=== PATIENT | female | born 1985 | race Caucasian/White ===

== ENCOUNTER 2019-06-09 00:57 | Inpatient (IN) | payer BC ==
[2019-06-09] MEDS ORDERED: Sodium Chloride 0.9% 10 ML Syringe FLUSH PRN (08:02)
[2019-06-09] MEDS ORDERED: Nalbuphine 10 MG/1 ML Vial IVPUSH PRN (08:02)
[2019-06-09] MEDS ORDERED: Oxytocin/Lactated Ringers 10 UNIT/1,000 ML BAG IV SCH ×2 (08:15)
[2019-06-09] MEDS: Lactated Ringers 1,000 ML IV SCH ×5 (08:27→23:31)
--- NOTE | 2019-06-09 10:14 | PCM.PREANE ---
Preanesthetic Assessment - Procedure Proposed Procedure: EVETTE - Anesthesia/Transfusion/Family Hx Anesthesia History: Prior Anesthesia Without Reaction Transfusion History: No Prior Transfusion(s) Intubation History: Unknown - Review of Systems General: No Symptoms Pulmonary: No Symptoms Cardiovascular: No Symptoms Gastrointestinal: Other (GERD tx with tums during ) Neurological: No Symptoms Other: Reports: None, Easy Bleeding (low platelets ) - Physical Assessment NPO Status Date: 06/02/19 NPO Status Time: 09:40 Vital Signs: Last Vital Signs Temp 36.1 C 06/09/19 08:03 Pulse 76 06/09/19 08:03 Resp 12 06/09/19 08:03 BP 117/73 06/09/19 08:03 Pulse Ox 100 06/09/19 08:03 Height: 1.65 m Weight: 84.232 kg ASA Class: 2 Mental Status: Alert & Oriented x3 Airway Class: Mallampati = 1 Dentition: Reports: Normal Dentition Thyro-Mental Finger Breadths: 3 Mouth Opening Finger Breadths: 5 ROM/Head Extension: Full Lungs: Clear to Auscultation, Normal Respiratory Effort Cardiovascular: Regular Rate, Regular Rhythm - Lab Values: Laboratory Last Values WBC 8.99 K/mm3 (3.98-10.04) 06/09/19 08:27 RBC 4.55 M/mm3 (3.98-5.22) 06/09/19 08:27 Hgb 13.2 gm/L (11.2-15.7) 06/09/19 08:27 Hct 39.1 % (34.1-44.9) 06/09/19 08:27 MCV 85.9 fl (79.4-94.8) 06/09/19 08:27 MCH 29.0 pg (25.6-32.2) 06/09/19 08:27 MCHC 33.8 g/dl (32.2-35.5) 06/09/19 08:27 RDW Std Deviation 41.0 fL (36.4-46.3) 06/09/19 08:27 Plt Count 107 K/mm3 (182-369) L 06/09/19 08:27 MPV 11.7 fl (9.4-12.3) 06/09/19 08:27 Neut % (Auto) 73.1 % (34.0-71.1) H 06/09/19 08:27 Lymph % (Auto) 18.0 % (19.3-51.7) L 06/09/19 08:27 [place] % (Auto) 7.6 % (4.7-12.5) 06/09/19 08:27 Eos % (Auto) 0.8 (0.7-5.8) 06/09/19 08:27 Baso % (Auto) 0.1 % (0.1-1.2) 06/09/19 08:27 Neut # (Auto) 6.57 K/mm3 (1.56-6.13) H 06/09/19 08:27 Lymph # (Auto) 1.62 K/mm3 (1.18-3.74) 06/09/19 08:27 [place] # (Auto) 0.68 K/mm3 (0.24-0.36) H 06/09/19 08:27 Eos # (Auto) 0.07 K/mm3 (0.04-0.36) 06/09/19 08:27 Baso # (Auto) 0.01 K/mm3 (0.01-0.08) 06/09/19 08:27 - Allergies Allergies/Adverse Reactions: Allergies Allergy/AdvReac Type Severity Reaction Status Date / Time No Known Allergies Allergy Verified 06/09/19 08:00 - Blood Blood Available: No - Anesthesia Plan Pre-Op Medication Ordered: None - Acknowledgements Anesthesia Type Planned: Epidural Pt an Appropriate Candidate for the Planned Anesthesia: Yes Alternatives and Risks of Anesthesia Discussed w Pt/Guardian: Yes Pt/Guardian Understands and Agrees with Anesthesia Plan: Yes PreAnesthesia Questionnaire - Past Health History Medical/Surgical History: Denies Medical/Surgical History 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: : 3 Para: 2 - SUBSTANCE USE Smoking Status *Q: Never Smoker Second Hand Smoke Exposure: No Recreational Drug Use History: No - HOME MEDS Home Medications: Home Meds [id number]/Iron Fumarate/FA/DSS [ 19 Tablet] 1 each PO DAILY 06/09/19 [ History] - CURRENT (IN HOUSE) MEDS Current Meds: Current Medications Lactated Ringer's (Ringers, Lactated) 1,000 mls @ 100 mls/hr IV ASDIRECTED AYLIN Last Admin: 06/09/19 08:27 Dose: 100 mls/hr Oxytocin/Lactated Ringer's (Pitocin In Lr 10 Units/1,000 Ml) 10 unit in 1,000 mls @ 12 mls/hr IV TITRATE ALYIN; Protocol Last Admin: 06/09/19 08:26 Dose: 2 munits/min, 12 mls/hr Oxytocin/Lactated Ringer's (Pitocin In Lr 10 Units/1,000 Ml) 10 unit in 1,000 mls @ 500 mls/hr IV .CONTINUOUS AYLIN Nalbuphine HCl (Nubain) 10 mg IVPUSH Q2H PRN PRN Reason: Pain Sodium Chloride (Saline Flush) 10 ml FLUSH ASDIRECTED PRN PRN Reason: Keep Vein Open
[2019-06-09] MEDS ORDERED: diphenhydrAMINE 50 MG/ML SDV IVPUSH PRN (10:23)
[2019-06-09] MEDS ORDERED: Ondansetron 4 MG/2 ML SDV IVPUSH PRN (10:23)
[2019-06-09] MEDS ORDERED: fentaNYL 100 MCG/2 ML SDV EPIDUR PRN (10:23)
--- NOTE | 2019-06-09 11:01 | PCM.LDHP ---
L&D History of Present Illness - General Date of Service: 06/09/19 Admit Problem/Dx: Patient Status Order with Admit Dx/Problem 06/09/19 08:03 Patient Status [ADT] Routine Admission Diagnosis/Problem Admission Diagnosis/Problem 06/09/19 10:49 Kanchan is a 33-year-old 3 para 2000 white female with an CHAR of 06/15/2019 admitted on 06/09/2019 at 39-1/7 weeks gestational age for elective induction of labor. Source of Information: Patient History Limitations: Reports: No Limitations - History of Present Illness Introduction:: Kanchan is a 33-year-old 3 para 2001 white female with an CHAR of 06/15/2019 admitted on 06/09/2019 at 39-1/7 weeks gestational age for elective induction of labor. On her last evaluation in clinic her cervix was 1-2 cm/70% effaced/soft/ mid position and a -3 station. She is admitted for induction of labor with Pitocin/artificial rupture membranes. Procedure, risks, benefits, alternatives of care including allowing natural labor onset all discussed with patient. She appears to understand and wishes to proceed. [employer]MENT CHAIR history 3 para 2001 with an CHAR 06/15/2019 as based upon a certain last menstrual starting 09/08/2018 and supported by 2 ultrasounds done on 2018 and 02/06/2019. care has been relatively unremarkable. She was first seen for care on 12/09/2018. She has had regular visits since that time. Her weight gain has been from 168.4 pounds to 182 pounds for approximately a pound weight gain. Fundal height growth has been appropriate and her vital signs of been stable. Patient had an abnormal one-hour glucose tolerance test but a three-hour GTT was normal. She desires tubal ligation after delivery. She desires epidural in labor and delivery. Her [place] depression screening score was 1/30 on 04/29/2019. Her group B strep screen is negative. Her [place] noninvasive test was negative. She plans to breast-feed. Platelet count obtained at 36 weeks showed a level of 113, 000. Patient had her T On 04/29/2019. She is rubella immune. RPR second trimester was negative. Laboratory testing in : Blood is O+ with a negative and by screen. First hemoglobin is 13.6 g/dL. Platelets are 181,000. Rubella titer shows immunity. RPR is nonreactive. Urine culture was negative. Hepatitis B surface antigen and HIV assays were both negative. Chlamydia and gonorrhea evaluations were both negative. Second trimester hemoglobin was 12.7. Her platelets are 128,000 at that time. One-hour GTT is 172. Her three-hour GTT showed a fasting blood sugar of 93. One-hour glucose was 176. 2 hour glucose is 112. In three-hour glucose was 83. Hemoglobin on 05/13/2019 was 13.4 and platelets are 113,000. On 05/27/2019 and her platelet count was 123,000. Group B strep screen was negative. Allergies none Medications: vitamins 1 daily Past medical history: Normal spontaneous vaginal delivery 1 with one baby at 9 lbs. 1 oz. Both were born in [place]. 2. Abnormal Pap smear with colposcopy in 2006. 3. Retained placenta with previous Past surgical history: 1. [place] teeth extraction 2007. Family history: Mother is alive and well. Father is alive and well. One sister with Down syndrome. One brother is alive and well. Maternal grandfather is secondary to suicide. Suffered from depression. Maternal grandmother is secondary to heart failure. Did have rheumatic fever as a child. Paternal grandfather secondary to heart attack. Paternal grandmother is secondary to old age. Family history of cancer unknown. Patient has no family history of bleeding disorders, blood clotting disorders, anesthesia or asthma problems. No problems noted otherwise either. Social history: Patient is single. Significant other is Jared Bonilla. She works as a counselor. She has a college education. She lives in [facility]. She does not use any significant amounts of alcohol, drugs or tobacco. Review of systems: In general patient has no complaints. Baby is active. Skin: Negative Lungs: No infectious symptoms or shortness of breath Cardiovascular: No chest pain or exercise intolerance Breasts: No lumps, changes in size, pain, dimpling, discharge or axillary or supraclavicular concerns. GI: Negative : symptoms. Increased fundal height secondary to . Musculoskeletal: Negative Neurological: Negative In general the patient is well-developed, well-nourished, pleasant female of stated age in no acute distress. On last evaluation in clinic her blood pressure was 110/74. Her weight was 182. heart rate is 130. All pregravid weight was 168.4. Height is 5 feet 5. Pregravid BMI was 27.8. Skin is warm dry without lesions. HEENT, neck and back within normal limits. Lungs are clear with good breath sounds in all lung razo. Cardiovascular exam shows regular and rhythm without murmurs. Breast exam is deferred at this time having been done at first visit and found to be normal. Patient does plan to breast-feed. Abdomen is gravid with last fundal height at 40 cm. Genital exam -1-2 cm/70% effaced/soft/mid position/-3 station Extremities and neurological exam are grossly within normal limits. 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: Reports: Social & Family History - Family History Family Medical History: Noncontributory - Tobacco Use Smoking Status *Q: Never Smoker Second Hand Smoke Exposure: No - Caffeine Use Caffeine Use: Reports: None - Recreational Drug Use Recreational Drug Use: No H&P Review of Systems - Review of Systems: Review Of Systems: See Below L&D Exam - Exam Exam: See Below - Vital Signs Vital Signs: Last Vital Signs Temp 36.1 C 06/09/19 08:03 Pulse 76 06/09/19 08:03 Resp 12 06/09/19 08:03 BP 117/73 06/09/19 08:03 Pulse Ox 100 06/09/19 08:03 Weight: 84.232 kg - Patient Data Lab Results Last 24 hrs: Laboratory Results - last 24 hr 06/09/19 Range/Units 08:27 WBC 8.99 (3.98-10.04) K/mm3 RBC 4.55 (3.98-5.22) M/mm3 Hgb 13.2 (11.2-15.7) gm/L Hct 39.1 (34.1-44.9) % MCV 85.9 (79.4-94.8) fl MCH 29.0 (25.6-32.2) pg MCHC 33.8 (32.2-35.5) g/dl RDW Std Deviation 41.0 (36.4-46.3) fL Plt Count 107 L (182-369) K/mm3 MPV 11.7 (9.4-12.3) fl Neut % (Auto) 73.1 H (34.0-71.1) % Lymph % (Auto) 18.0 L (19.3-51.7) % [place] % (Auto) 7.6 (4.7-12.5) % Eos % (Auto) 0.8 (0.7-5.8) Baso % (Auto) 0.1 (0.1-1.2) % Neut # (Auto) 6.57 H (1.56-6.13) K/mm3 Lymph # (Auto) 1.62 (1.18-3.74) K/mm3 [place] # (Auto) 0.68 H (0.24-0.36) K/mm3 Eos # (Auto) 0.07 (0.04-0.36) K/mm3 Baso # (Auto) 0.01 (0.01-0.08) K/mm3 Result Diagrams: 06/09/19 08:27 Problem List Initiated/Reviewed/Updated: Yes Orders Last 24hrs: Active Orders 24 hr Category Date Time Status Patient Status [ADT] Routine ADT 06/09/19 08:03 Active Activity as Tolerated [RC] PFP Care 06/09/19 08:03 Active Communication Order [RC] ASDIRECTED Care 06/09/19 08:03 Active Heart Tones [RC] ASDIRECTED Care 06/09/19 08:03 Active Notify Provider [RC] ASDIRECTED Care 06/09/19 10:23 Active Notify Provider [RC] PFP Care 06/09/19 08:03 Active Notify Provider [RC] PRN Care 06/09/19 08:03 Active Oxygen Therapy [RC] ASDIRECTED Care 06/09/19 10:23 Active Peripheral IV Care [RC] . DIRECTED Care 06/09/19 08:03 Active Vital Signs [RC] PER UNIT ROUTINE Care 06/09/19 08:03 Active Regular Diet [DIET] Diet 06/09/19 Breakfast Active RAPID PLASMA REAGIN,RPR [CHEM] Routine Lab 06/09/19 08:27 Received Bupivacaine/fentaNYL/NS [fentaNYL/Bupivacaine/NS 2 MCG- Med 06/09/19 10:30 Active 0.125% 100 ML] 100 ml EPIDUR ASDIRECTED Lactated Ringers [Ringers, Lactated] 1,000 ml Med 06/09/19 08:15 Active IV ASDIRECTED Nalbuphine [Nubain] Med 06/09/19 08:02 Active 10 mg IVPUSH Q2H PRN Ondansetron [Zofran] Med 06/09/19 10:23 Active 4 mg IVPUSH ONETIME PRN Oxytocin/Lactated Ringers [Pitocin in LR 10 Units/1,000 Med 06/09/19 08:15 Active ML] 10 unit in 1,000 ml IV .CONTINUOUS Oxytocin/Lactated Ringers [Pitocin in LR 10 Units/1,000 Med 06/09/19 08:15 Active ML] 10 unit in 1,000 ml IV TITRATE Sodium Chloride 0.9% [Saline Flush] Med 06/09/19 08:02 Active 10 ml FLUSH ASDIRECTED PRN diphenhydrAMINE [Benadryl] Med 06/09/19 10:23 Active 25 mg IVPUSH Q6H PRN fentaNYL [Sublimaze] Med 06/09/19 10:23 Active 100 mcg EPIDUR Q3H PRN Electronic Heart Tones Ext w TOCO [WOMSER] Oth 06/09/19 08:03 Ordered Routine Electronic Heart Tones Internal [WOMSER] Per Unit Ot 06/09/19 08:03 Ordered Routine Peripheral IV Insertion Adult [OM.PC] Routine Oth 06/09/19 08:03 Ordered Resuscitation Status Routine Resus Stat 06/09/19 08:02 Ordered Medication Orders Diphenhydramine HCl (Benadryl) 25 mg IVPUSH Q6H PRN PRN Reason: pruritis Fentanyl (Sublimaze) 100 mcg EPIDUR Q3H PRN PRN Reason: Pain Fentanyl/Bupivacaine HCl (Fentanyl/Bupivacaine/Ns 2 Mcg-0.125% 100 Ml) 100 ml EPIDUR ASDIRECTED AYLIN Lactated Ringer's (Ringers, Lactated) 1,000 mls @ 100 mls/hr IV ASDIRECTED AYLIN Last Admin: 06/09/19 08:27 Dose: 100 mls/hr Oxytocin/Lactated Ringer's (Pitocin In Lr 10 Units/1,000 Ml) 10 unit in 1,000 mls @ 12 mls/hr IV TITRATE AYLIN; Protocol Last Titration: 06/09/19 10:20 Dose: 12 munits/min, 72 mls/hr Titration: 06/09/19 09:45 Dose: 10 munits/min, 60 mls/hr Titration: 06/09/19 09:30 Dose: 8 munits/min, 48 mls/hr Titration: 06/09/19 09:15 Dose: 6 munits/min, 36 mls/hr Titration: 06/09/19 09:00 Dose: 4 munits/min, 24 mls/hr Admin: 06/09/19 08:26 Dose: 2 munits/min, 12 mls/hr Oxytocin/Lactated Ringer's (Pitocin In Lr 10 Units/1,000 Ml) 10 unit in 1,000 mls @ 500 mls/hr IV .CONTINUOUS AYLIN Nalbuphine HCl (Nubain) 10 mg IVPUSH Q2H PRN PRN Reason: Pain Ondansetron HCl (Zofran) 4 mg IVPUSH ONETIME PRN PRN Reason: Nausea/Vomiting Sodium Chloride (Saline Flush) 10 ml FLUSH ASDIRECTED PRN PRN Reason: Keep Vein Open Assessment/Plan Comment:: 1. 39-1/7 week gestational age with an CHAR of 06/15/2019 admitted on for elective induction of labor due to distance from the hospital. 2. History of macrosomic baby first ?9 lbs. 1 oz. 3. Last platelet count 05/27/2019 123,000 4. T dap given during 5. She desires epidural in labor and delivery 6. RPR nonreactive 7. Rubella titer shows immunity 8. Patient plans to breast 9. Desires tubal ligation after delivery. 10. [place] noninvasive testing result was negative. Plan: 1. Admit for elective induction of labor 2. Incision 3. Epidural when necessary for pain labor 4. Anticipate .
[2019-06-09] MEDS: Bupivacaine/fentaNYL/NS 100 ML Bag EPIDUR SCH ×2 (15:30→23:45)
--- NOTE | 2019-06-10 01:23 | PCM.SN ---
- Free Text/Narrative Note: Delivery note: Kanchan is a 33-year-old 3 now para 3003 white female who was admitted at 39-2/7 weeks gestational age active induction of labor. Induction of labor consist of Pitocin induction with artificial rupture membranes augmentation. She had an epidural for labor and analgesia. She progressed slowly to complete cervical dilation. At time she had periods of variable decelerations but variability was maintained and patient made steady progress. She became completely dilated at approximately 00 40 hours on 06/10/2019. She pushed for a short period of time and delivered a viable, olvera, female with Apgars 7 and 9, weight of 3410 g (7 pounds 8.3 ounces), a length of 20.0 inches in a direct occiput anterior position after rotation of the head. The shoulders were delivered without problem. The baby was placed on mom's abdomen. The umbilical cord was allowed to pulsate 1-2 minutes and then was clamped 2 and cut by the baby's father. Pitocin was increased to 500 mL per hour to facilitate increase in uterine tone and decrease likelihood of bleeding. Cord blood was obtained. The umbilical cord had 3 vessels. The placenta then delivered in a Leonard presentation, appeared intact and complete and was discarded per patient desire. A small first-degree perineal laceration was repaired with 3-0 Monocryl in 1 single [id number] suture. No other concerns are identified. Patient plans to breast-feed. Has been blood loss 100 mL. Condition:
[2019-06-10] MEDS ORDERED: Docusate Sodium 100 MG Cap PO PRN (01:24)
[2019-06-10] MEDS ORDERED: Witch Hazel Medicated Pads 40/Jar TOP PRN (01:24)
[2019-06-10] MEDS ORDERED: Lanolin 100% Cream 7 GM Tube TOP PRN (01:24)
[2019-06-10] MEDS ORDERED: Benzocaine/Menthol 20%-0.5% Spray 56 GM Canister TOP PRN (01:24)
[2019-06-10] MEDS: Ibuprofen 600 MG Tab PO PRN ×4 (06:54→22:17)
[2019-06-10] MEDS: Acetaminophen 325 MG Tab PO PRN ×2 (07:51→16:37)
--- NOTE | 2019-06-10 08:36 | PCM.SN ---
- Free Text/Narrative Note: Date of delivery: note: Patient is doing well in the period. Minimal lochia, voiding well, ambulated without problems. Nursing without concerns. Patient is afebrile, vital signs are stable Abdomen is flat, soft, uterus is below the umbilicus and is firm and nontender. Legs are nontender. Assessment: recovery going well. Plan: Routine care. Patient be discharged home within the next 24-48 hours.
--- NOTE | 2019-06-10 14:31 | PCM48HPAN ---
Post Anesthesia Note - EVALUATION WITHIN 48HRS OF ANESTHETIC Vital Signs in Normal Range: Yes Patient Participated in Evaluation: Yes Respiratory Function Stable: Yes Airway Patent: Yes Cardiovascular Function Stable: Yes Hydration Status Stable: Yes Pain Control Satisfactory: Yes Nausea and Vomiting Control Satisfactory: Yes Mental Status Recovered: Yes Vital Signs: Last Vital Signs Temp 36.6 C 06/10/19 08:04 Pulse 55 L 06/10/19 08:04 Resp 16 06/10/19 08:04 BP 115/58 L 06/10/19 08:04 Pulse Ox 99 06/10/19 08:04
[2019-06-11] MEDS ORDERED: Bupivacaine 0.25% 10 ML SDV ONE
[2019-06-11] MEDS: Ibuprofen 600 MG Tab PO PRN (04:36)
--- NOTE | 2019-06-11 07:28 | PCM.DCSUM1 ---
Discharge Summary - Hospital Course Free Text/Narrative:: Kanchan is a 33-year-old 3 now para 3003 white female who was admitted at 39-2/7 weeks gestational age active induction of labor. Induction of labor consist of Pitocin induction with artificial rupture membranes augmentation. She had an epidural for labor and analgesia. She progressed slowly to complete cervical dilation. At time she had periods of variable decelerations but variability was maintained and patient made steady progress. She became completely dilated at approximately 00 40 hours on 06/10/2019. She pushed for a short period of time and delivered a viable, olvera, female infant with Apgars 7 and 9, weight of 3410 g (7 pounds 8.3 ounces), a length of 20.0 inches in a direct occiput anterior position after rotation of the head. The shoulders were delivered without problem. The baby was placed on mom's abdomen. The umbilical cord was allowed to pulsate 1-2 minutes and then was clamped 2 and cut by the baby's father. Pitocin was increased to 500 mL per hour to facilitate increase in uterine tone and decrease likelihood of bleeding. Cord blood was obtained. The umbilical cord had 3 vessels. The placenta then delivered in a Leonard presentation, appeared intact and complete and was discarded per patient desire. A small first-degree perineal laceration was repaired with 3-0 Monocryl in 1 single [id number] suture. No other concerns are identified. Patient plans to breast-feed. Has been blood loss 100 mL. patient is done well. She is ambulatory and without concerns. Nursing is going well. She has minimal lochia. Vital signs and stable and patient been afebrile. She is desiring discharge home today. - Discharge Data Discharge Date: 06/11/19 Discharge Disposition: Home, Self-Care 01 Condition: Good - Patient Instructions Diet: Regular Diet as Tolerated (Nursing diet was increased calories and calcium as recommended) Activity: As Tolerated (No intercourse or tampons until bleeding resolves) Driving: May Drive Today Showering/Bathing: May Shower (May take a bath) Notify Provider of: Fever, Increased Pain, Swelling and Redness, Nausea and/or Vomiting - Discharge Plan Home Medications: Home Meds [id number]/Iron Fumarate/FA/DSS [ 19 Tablet] 1 each PO DAILY 06/09/19 [ History] Acetaminophen [Tylenol] 650 mg PO Q4H PRN tablet 06/11/19 [Rx] Ibuprofen [Motrin] 600 mg PO Q4H PRN tablet 06/11/19 [Rx] Referrals: Jose Ansari MD [Primary Care Provider] - (Return to clinicDr. Ansari2 weeks.) - Discharge Summary/Plan Comment DC Time >30 min.: No Discharge Summary/Plan Comment: Discharge instructions: 1. Discharge home 2. Diet, activity and follow-up discussed with patient. Recommend nursing diet with increased calories and calcium. 3. Precautions given concern increased pain, bleeding, temperature, signs/ symptoms of DVT/PE. 4. Medications per home medication was printed, discussed with and given to the patient. 5. Return to clinic-Dr. Ansari[facility] in 2 weeks. Diagnosis: Term -delivered Condition: Good - Patient Data Vitals - Most Recent: Last Vital Signs Temp 36.4 C 06/11/19 04:33 Pulse 53 L 06/11/19 04:33 Resp 14 06/11/19 04:33 BP 118/63 06/11/19 04:33 Pulse Ox 98 06/11/19 04:33 Weight - Most Recent: 84.232 kg I&O - Last 24 hours: Intake & Output 06/10/19 06/11/19 06/11/19 22:59 06:59 14:59 Intake Total 540 Balance 540 Med Orders - Current: Current Medications Acetaminophen (Tylenol) 650 mg PO Q4H PRN PRN Reason: mild pain or fever Last Admin: 06/10/19 16:37 Dose: 650 mg Benzocaine/Menthol (Dermoplast Pain Relief Mershon) 0 gm TOP ASDIRECTED PRN PRN Reason: Perineal Comfort Measure Last Admin: 06/10/19 06:54 Dose: 1 can Docusate Sodium (Colace) 100 mg PO BID PRN PRN Reason: Constipation Last Admin: 06/10/19 16:37 Dose: 100 mg Emollient Ointment (Lansinoh Hpa) 0 gm TOP ASDIRECTED PRN PRN Reason: Sore Nipples Ibuprofen (Motrin) 600 mg PO Q4H PRN PRN Reason: Mild pain or fever Last Admin: 06/11/19 04:36 Dose: 600 mg Witch Sanna (Tucks) 1 pad TOP ASDIRECTED PRN PRN Reason: Pain Last Admin: 06/10/19 06:53 Dose: 1 jar Discontinued Medications Diphenhydramine HCl (Benadryl) 25 mg IVPUSH Q6H PRN PRN Reason: pruritis Fentanyl (Sublimaze) 100 mcg EPIDUR Q3H PRN PRN Reason: Pain Last Admin: 06/09/19 15:30 Dose: 100 mcg Fentanyl/Bupivacaine HCl (Fentanyl/Bupivacaine/Ns 2 Mcg-0.125% 100 Ml) 100 ml EPIDUR ASDIRECTED AYLIN Last Admin: 06/09/19 23:45 Dose: 100 ml Lactated Ringer's (Ringers, Lactated) 1,000 mls @ 100 mls/hr IV ASDIRECTED AYLIN Last Admin: 06/09/19 23:31 Dose: 999 mls/hr Oxytocin/Lactated Ringer's (Pitocin In Lr 10 Units/1,000 Ml) 10 unit in 1,000 mls @ 12 mls/hr IV TITRATE AYLIN; Protocol Last Titration: 06/09/19 22:46 Dose: 5 munits/min, 30 mls/hr Oxytocin/Lactated Ringer's (Pitocin In Lr 10 Units/1,000 Ml) 10 unit in 1,000 mls @ 500 mls/hr IV .CONTINUOUS AYLIN Last Admin: 06/09/19 23:31 Dose: 500 mls/hr Nalbuphine HCl (Nubain) 10 mg IVPUSH Q2H PRN PRN Reason: Pain Last Admin: 06/09/19 13:03 Dose: 10 mg Ondansetron HCl (Zofran) 4 mg IVPUSH ONETIME PRN PRN Reason: Nausea/Vomiting Sodium Chloride (Saline Flush) 10 ml FLUSH ASDIRECTED PRN PRN Reason: Keep Vein Open
[2019-06-11] MEDS: Acetaminophen 325 MG Tab PO PRN (09:34)
== END 2019-06-11 10:25 | disposition home or self-care (01) | DRG 560 ==
LOC: JD.OB 00:57 → OBSVTOIN 06-10 00:57 → JD.OB 06-10 00:58
PROVIDERS: ADMIT Obstetrics & Gynecology; ATTEND Obstetrics & Gynecology
PROC: 10E0XZZ Delivery of Products of Conception, External Approach (ICD-10-PCS; principal; 2019-06-10)
PROC: 3E033VJ Introduction of Other Hormone into Peripheral Vein, Percutaneous Approach (ICD-10-PCS; 2019-06-10)
PROC: 10907ZC Drainage of Amniotic Fluid, Therapeutic from Products of Conception, Via Natural or Artificial Opening (ICD-10-PCS; 2019-06-10)
PROC: 0HQ9XZZ Repair Perineum Skin, External Approach (ICD-10-PCS; 2019-06-10)
DX: O76 Abnormality in fetal heart rate and rhythm complicating labor and delivery (principal); O70.0 First degree perineal laceration during delivery; Z3A.39 39 weeks gestation of pregnancy; Z37.0 Single live birth
CPT/HCPCS: 36415; 51702; 59025; 59409; 85025; 86592; A9270-GY; J2300; J2590; J3010; J3490; J7120